=== PATIENT | female | born 1955 | race Caucasian/White ===

== ENCOUNTER 2021-10-15 11:41 | Emergency (ER) | payer MEDICARE ==
[2021-10-15] MEDS ORDERED: Metoclopramide HCl 10 MG/2 ML VIAL ONE (13:19)
[2021-10-15] MEDS ORDERED: diphenhydrAMINE 25 MG CAP ONE (13:19)
== END 2021-10-15 16:10 | disposition home or self-care (01) ==
LOC: ERS 11:41
DX: R51.9 Headache, unspecified (principal)
CPT/HCPCS: 70450; 93005; 96372; J2765